=== PATIENT | female | born 1950 | race Caucasian/White ===

== ENCOUNTER → 2021-06-09 | Outpatient (CLI) | payer OTHER ==
[~2021-06-09] MED LIST: ARICEPT5 MG PO; CARVEDILOL3.125 MG PO; CHILDREN'S ASPI81 MG PO; CHLORTHALIDONE50 MG PO; FLUTICASONE; GABAPENTIN600 MG PO; LEVOTHYROXINE100 MCG PO; LIPITOR80 MG PO; LOSARTAN POTASS25 MG PO; MELATONIN300 MCG PO; OMEPRAZOLE40 MG PO; PREMARIN VAG CR30 GM VG; ROBAXIN 750 MG750 MG PO; TIZANIDINE HCL2 MG PO; ZOFRAN ODT 4 MG4 MG PO
[2021-06-09 13:05] LABS: HEMOGLOBIN 13.5 gm/dl (12.3-15.3); RED BLOOD COUNT 4.55 M/UL (4.00-5.10)
== END ==
LOC: OPSV2 11:30
PROVIDERS: Obstetrics & Gynecology
DX: Z01.818 Encounter for other preprocedural examination (principal); N81.9 Female genital prolapse, unspecified; Z88.0 Allergy status to penicillin; I10 Essential (primary) hypertension; I25.2 Old myocardial infarction; R94.31 Abnormal electrocardiogram [ECG] [EKG]
CPT/HCPCS: 36415; 80053; 81001; 85025; 93005

== ENCOUNTER 2021-06-16 07:38 | Day surgery (SDC) | payer OTHER ==
[~2021-06-16] VITALS: Ht 154.9 cm; Wt 83.3 kg
[2021-06-16] MEDS ORDERED: SULFAMETHOXAZO1 EACH PO (08:37)
[2021-06-16] MEDS ORDERED: DOCUSATE SODIU250 MG PO (15:12)
[2021-06-16] MEDS ORDERED: HYDROCODONE-AC1 EACH PO (15:12)
[2021-06-16] MEDS ORDERED: IBUPROFEN600 MG PO (15:12)
[2021-06-16] MEDS ORDERED: OXYBUTYNIN CHLOR5 MG PO (15:12)
== END 2021-06-17 13:13 | disposition home or self-care (01) ==
LOC: OR 07:38 → M/S 07:38 → OR 12:45 → M/S 21:22 → OR 06-17 13:13
DX: N81.10 Cystocele, unspecified (principal); N73.6 Female pelvic peritoneal adhesions (postinfective); K57.90 Diverticulosis of intestine, part unspecified, without perforation or abscess without bleeding; Z88.0 Allergy status to penicillin; I10 Essential (primary) hypertension; G51.0 Bell's palsy; M79.7 Fibromyalgia; I25.2 Old myocardial infarction; N95.2 Postmenopausal atrophic vaginitis; Z90.49 Acquired absence of other specified parts of digestive tract; Z96.653 Presence of artificial knee joint, bilateral; Z23 Encounter for immunization; Z20.822 Contact with and (suspected) exposure to COVID-19
CPT/HCPCS: 0; 71045; C1763; C1769; J1100; J1170; J1580; J2001; J2250; J2405; J2704; J2710; J3010; J7050; J7120; U0002